=== PATIENT | female | born 1965 | race Caucasian/White ===

== ENCOUNTER 2020-01-29 11:56 | Day surgery (SDC) | payer BC ==
[2020-01-25 11:38] LABS: BASOPHILS % (AUTO) 0.7 % (0-1); EOSINOPHILS # (AUTO) 0.1 X10'3 (0-0.9); EOSINOPHILS % (AUTO) 3.1 % (0-6); LYMPHOCYTES # (AUTO) 1.1 X10'3 (1.1-4.8); LYMPHOCYTES % (AUTO) 23.2 % (21-51); MEAN CORPUSCULAR HEMOGLOBIN 28.3 PG (27.0-31.0); MEAN CORPUSCULAR HGB CONC 33.3 g/dL (33.0-36.5); MEAN CORPUSCULAR VOLUME 85.1 FL (78-98); MEAN PLATELET VOLUME 9.5 FL (7.4-10.4); MONOCYTES # (AUTO) 0.4 X10'3 (0-0.9); MONOCYTES % (AUTO) 7.9 % (2-12); NEUTROPHILS # (AUTO) 3.1 X10'3 (1.8-7.7); NEUTROPHILS % (AUTO) 65.1 % (42-75); PRE OP HEMATOCRIT 44.1 % (35.0-45.0); PRE OP HEMOGLOBIN 14.7 g/dL (12.0-16.0); PRE OP PLATELET COUNT 189 X10'3 (140-440); RED BLOOD COUNT 5.18 X10'6 (4.20-5.60); RED CELL DISTRIBUTION WIDTH 13.6 % (11.5-14.5)
[2020-01-25 11:53] LABS: ALBUMIN 4.2 G/DL (3.4-5.0); ALBUMIN/GLOBULIN RATIO 1.4 (1.1-1.5); ALKALINE PHOSPHATASE 50 IU/L (46-116); BLOOD UREA NITROGEN 13 MG/DL (7-18); BUN/CREATININE RATIO 10.2 (6.6-38.0); CALCIUM 9.7 MG/DL (8.5-10.1); CHLORIDE 106 MMOL/L (99-107); CREATININE 1.27 MG/DL (0.40-0.90); PRE OP ALT 34 U/L (30-65); PRE OP ANION GAP 9 (8-16); PRE OP AST 23 U/L (10-37); PRE OP BILIRUB, TOTAL 0.6 MG/DL (0.0-1.0); PRE OP GLUCOSE 108 MG/DL (70-104); PRE OP POTASSIUM 4.5 MMOL/L (3.4-5.1); PRE OP SODIUM 143 MMOL/L (135-145); TOTAL CARBON DIOXIDE 28.2 MMOL/L (24-32); TOTAL PROTEIN 7.3 G/DL (6.4-8.2); eGFR 44 ML/MIN
[2020-01-29] VITALS (8 sets, daily range): BP systolic 113–128; BP diastolic 70–84
[~2020-01-29] VITALS: Ht 165.1 cm; Wt 100.5 kg
[~2020-01-29 11:56] MED LIST: DOXY150T5 PO; METROGEL TOP; famotidine 20mg tablet PO ONE; ringers solution, lacted 1,000 ML IV SCH; scopolamine 1.5mg patch.TD72 TD ONE
[2020-01-29] MEDS ORDERED: ringers solution, lacted 1,000 ML IV SCH (13:43)
[2020-01-29] MEDS ORDERED: meperidine/PF 25mg/ml syringe IV PRN ×3 (13:45)
[2020-01-29] MEDS ORDERED: morphine 2 MG/ML inj. syringe IV PRN (13:45)
[2020-01-29] MEDS ORDERED: acetaminophen 1,000mg/100ml IV 100 ML IV PRN (13:45)
[2020-01-29] MEDS ORDERED: ondansetron/PF 4mg/2ml inj IV PRN (13:45)
[2020-01-29] MEDS ORDERED: proCHLORperazine 10 MG/2 ml inj IV PRN (13:45)
[2020-01-29] MEDS ORDERED: morphine 4 MG/ML inj SYRINge IV PRN (13:45)
[2020-01-29] MEDS ORDERED: vancomycin/NS 1 GM ADD-VANTAGE 250 ML IV ONE (13:50)
[2020-01-29] MEDS ORDERED: fentaNYL/PF 50MCG/1 ML 2ML syringe ONE (14:25)
[2020-01-29] MEDS ORDERED: midazolam 2 mg/2 ml injection ONE (14:26)
[2020-01-29] MEDS ORDERED: sevoflurane 250ml liquid IH ONE (14:26)
[2020-01-29] MEDS ORDERED: ondansetron/PF 4mg/2ml inj ONE (14:33)
[2020-01-29] MEDS ORDERED: vasoPRESSIN 20 units/ml inj. ONE (14:33)
[2020-01-29] MEDS ORDERED: LIDOcaine 2% (20mg/ml) 5ml vial ONE (14:33)
[2020-01-29] MEDS ORDERED: dexamethasone sod phosphate 4mg/ml inj. ONE (14:33)
[2020-01-29] MEDS ORDERED: propofol inj 20 ML IV ONE (14:33)
--- NOTE | 2020-01-29 15:07 | NUR ---
Received from OR via [facility], accompanied by Anesthesiologist DR HUSAIN and report given by Anesthesiolgist. PT PLACED ON O2 ND MONITOR, S/P CERVICAL CONIZATION, GENERAL ANESTH, PT AWAKE, DENIES ANY PAIN OR NAUSEA AT THIS TIME, ABD SOFT, WILL CONT TO ASSESS. Addendum: 01/29/20 at 1533 by Gill Taylor RN Amended: Links added.
== END 2020-01-29 16:07 | disposition home or self-care (01) ==
LOC: PAS 11:56
PROVIDERS: ATTEND Specialist
DX: N87.0 Mild cervical dysplasia (principal); E66.3 Overweight; Z68.36 Body mass index [BMI] 36.0-36.9, adult; D64.9 Anemia, unspecified; Z98.890 Other specified postprocedural states; Z88.1 Allergy status to other antibiotic agents; Z79.899 Other long term (current) drug therapy; Z88.0 Allergy status to penicillin; Z88.8 Allergy status to other drugs, medicaments and biological substances; A63.0 Anogenital (venereal) warts
CPT/HCPCS: 36415; 57520; 80053; 82948; 85025; 93005; J1100; J2001; J2250; J2405; J2704; J3010; J3370; J7120; U0003; A4618; A7000; J3490